=== PATIENT | male | born 1980 | race Caucasian/White ===

== ENCOUNTER 2022-12-19 16:32 | Emergency (ER) | payer SELFPAY ==
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
[2022-12-19 16:44] VITALS: BP 166/106; PULSE 98; RESP 18; TEMP 36.4; O2SAT 99
[2022-12-19 17:10] VITALS: PULSE 69
[2022-12-19 17:30] VITALS: RESP 19; O2SAT 98
--- NOTE | 2022-12-19 17:50 | ECG_ITS ---
Measurements Intervals [place] Rate: 73 P: 34 NM: 147 QRS: 15 QRSD: 94 T: 30 QT: 408 QTc: 452 Interpretive Statements SINUS RHYTHM NORMAL ECG NO PREVIOUS ECG AVAILABLE FOR COMPARISON Electronically Signed On 12-20-2022 9:44:40 CDT by Lewis Newby M.D.
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
[2022-12-19] MEDS: LORazepam INJ (*CRX) 2 MG/ML VIAL 1 MG IV PUSH (18:01)
[2022-12-19] MEDS: KETOROLAC 30 MG/ML VIAL (*BKC) IV PUSH (18:01)
[2022-12-19] MEDS: FAMOTIDINE 20 MG/2 ML VIAL IV PUSH (18:04)
[2022-12-19 18:19] LABS: Basophils Absolute Auto 0.1 K/mm3 (0.0-0.1); Basophils Percent Auto 0.5 % (0.2-1.2); Eosinophils Percent Auto 0.1 % (0-4.4); Hematocrit 44.4 % (42.0-52.0); Immature Granulocyte Absolute 0.02 K/mm3 (0.00-0.031); Immature Granulocyte Percent A 0.2 % (0-0.5); Lymphocytes Absolute Auto 1.28 K/mm3 (0.9-3.2); Lymphocytes Percent Auto 13.1 % (18.3-44.2); Mean Corpuscular HGB Conc 33.8 g/dl (32-36); Mean Corpuscular Hemoglobin 31.4 pg (26-34); Mean Corpuscular Volume 92.9 fl (80-100); Mean Platelet Volume 10.9 fl (7.4-10.4); Monocytes Absolute Auto 0.8 K/mm3 (0.1-0.6); Monocytes Percent Auto 8.4 % (2.6-8.5); Neutrophils Absolute Auto 7.6 K/mm3 (1.3-6.7); Neutrophils Percent Auto 77.7 % (45.5-73.1); Platelet Count Result 327 k/mm3 (150-375); Red Blood Count 4.78 M/mm3 (4.6-6.20); Red Cell Distribution Width 12.6 % (11.5-14.5); White Blood Count 9.8 K/mm3 (4.5-10.0)
[2022-12-19 18:29] LABS: Alanine Aminotransferase 104 U/L (6-50); Albumin Level 4.6 g/dL (3.5-5.1); Alkaline Phosphatase 69 U/L (38-126); Anion Gap 15 mmol/L (8-16); Aspartate Amino Transferase 121 U/L (17-59); Bilirubin,Total 1.5 mg/dL (0.2-1.3); Blood Urea Nitrogen 12 mg/dL (9-20); Calcium 9.5 mg/dL (8.4-10.2); Carbon Dioxide 21 mmol/L (22-30); Chloride 101 mmol/L (98-107); Estimated CRCL calculation 121 ml/min; Estimated Glomerular Filt Rate > 60; Glucose 92 mg/dL (65-110); Potassium 4.2 mmol/L (3.4-5.0); Sodium 137 mmol/L (137-145)
[2022-12-19 18:41] LABS: Troponin I < 0.012 ng/mL (0.000-0.034)
[2022-12-19 18:59] VITALS: BP 160/99; PULSE 69; RESP 19; O2SAT 98
[2022-12-19 19:28] VITALS: BP 157/106; PULSE 79; RESP 15; TEMP 36.7; O2SAT 99
--- NOTE | 2022-12-19 20:05 | PC.NURSE ---
Patient had his friend sign due to his writing hand being in a sling.
== END 2022-12-19 20:07 | disposition home or self-care (01) ==
PROVIDERS: Emergency Provider Physician Assistant
DX: R07.89 Other chest pain (principal); S42.001D Fracture of unspecified part of right clavicle, subsequent encounter for fracture with routine healing; V86.56XD Driver of dirt bike or motor/cross bike injured in nontraffic accident, subsequent encounter
CPT/HCPCS: 36415; 71045; 71260; 74177; 80053; 84484; 85025; 93005; 96374; 96375; 99284; A4565; J1885; J2060; Q9967